=== PATIENT | male | born 1985 | race African-American/Black ===

== ENCOUNTER 2017-09-02 08:34 | Emergency (ER) | payer SELFPAY ==
[~2017-09-02] VITALS: Ht 193 cm; Wt 110.0 kg
[2017-09-02 08:35] VITALS: BP 129/78; PULSE 87; RESP 18; TEMP 99.4; O2SAT 98
[2017-09-02] MEDS ORDERED: IBUP-232 PO (09:37)
[2017-09-02] MEDS ORDERED: OSEL75 PO (09:37)
--- NOTE | 2017-09-02 09:37 | PD ---
HPI Chief Complaint: Cold / Flu Symptoms Time Seen by Provider: 09:31 Travel History International Travel<30 days: No Contact w/Intl Traveler<30days: No Traveled to known affect area: No History of Present Illness HPI The patient is 31 years old and complains of body aches and pains fever congestion for about 3-4 days. [id number] flu medications have helped only minimally. No chest pain or shortness of breath. Severity moderate. Timing constant. PFSH Social History Tobacco Use: No Allergies-Medications (Allergen,Severity, Reaction): Coded Allergies: No Known Allergies (Unverified , 09/02/17) Review of Systems General / Constitutional: Positive: Fever Cardiovascular: No: Chest Pain or Discomfort, Palpitations Respiratory: Positive: Cough Musculoskeletal: Positive: Myalgias Physical Exam Narrative GENERAL: Pleasant 31-year-old male well-nourished well-developed SKIN: Warm and dry. HEAD: Atraumatic. Normocephalic. EYES: Pupils equal and round. No scleral icterus. No injection or drainage. ENT: No nasal bleeding or discharge. Mucous membranes pink and moist. Posterior oropharynx widely patent. NECK: Trachea midline. No JVD. CARDIOVASCULAR: Rhythm regular. Tachycardia. RESPIRATORY: No accessory muscle use. Clear to auscultation. Breath sounds equal bilaterally. GASTROINTESTINAL: Abdomen soft, non-tender, nondistended. Hepatic and splenic margins not palpable. MUSCULOSKELETAL: Extremities without clubbing, cyanosis, or edema. No obvious deformities. NEUROLOGICAL: Awake and alert. No obvious cranial nerve deficits. Motor grossly within normal limits. Five out of 5 muscle strength in the arms and legs. Normal speech. PSYCHIATRIC: Appropriate mood and affect; insight and judgment normal. Data Data Last Documented VS Vital Signs Date Time Temp Pulse Resp B/P (MAP) Pulse Ox O2 Delivery O2 Flow Rate FiO2 09/02/17 08:35 99.4 87 18 129/78 (95) 98 Room Air Vital Signs Date Time Temp Pulse Resp B/P (MAP) Pulse Ox O2 Delivery O2 Flow Rate FiO2 09/02/17 08:35 99.4 87 18 129/78 (95) 98 Room Air Orders Orders Influenzae A/B Antigen (09/02/17 08:46) MDM Medical Decision Making Medical Screen Exam Complete: Yes Emergency Medical Condition: Yes Medical Record Reviewed: Yes Differential Diagnosis Flu pneumonia pharyngitis nonspecific URI Narrative Course Patient has influenza and will be sent home with Tamiflu and Motrin instructions. Diagnosis Primary Impression: Influenza Med/Other Pt SpecificInfo: Prescription(s) given Scripts Ibuprofen (Ibuprofen) 600 Mg Tab 600 MG PO Q8H Y for FEVER for 14 Days, #42 TAB 0 Refills Prov: Colin Baxter MD 09/02/17 Oseltamivir (Tamiflu) 75 Mg Cap 75 MG PO BID for Mgmt Viral Infection for 7 Days, #14 CAP 0 Refills Prov: Colin Baxter MD 09/02/17 Disposition: 01 DISCHARGE HOME Condition: Stable Colin Baxter MD Sep 02, 2017 09:37
== END 2017-09-02 09:40 | disposition home or self-care (01) ==
LOC: NEPD 08:34
DX: J11.1 Influenza due to unidentified influenza virus with other respiratory manifestations (principal)
CPT/HCPCS: 87804; 99283